=== PATIENT | female | born 1995 | race Two or more races ===

== ENCOUNTER 2020-11-25 13:58 | Emergency (ER) | payer OTHER ==
[~2020-11-25] VITALS: Ht 154.9 cm; Wt 68.0 kg
[~2020-11-25 13:58] MED LIST: ACET300T2 PO; INFL100I IV
[2020-11-25] MEDS ORDERED: cefTRIAXone W LIDOCAINE 1 GM IM IM ONE (17:45)
[2020-11-25 18:04] VITALS: BP 115/78
== END 2020-11-25 17:04 | disposition home or self-care (01) ==
LOC: ER 13:58
DX: M06.861 Other specified rheumatoid arthritis, right knee (principal); Z79.899 Other long term (current) drug therapy
CPT/HCPCS: 20610; 73700; 96372; 99284; J0696

== ENCOUNTER 2020-11-29 06:17 | Emergency (ER) | payer OTHER ==
[~2020-11-29] VITALS: Ht 154.9 cm; Wt 49.9 kg
[2020-11-29] MEDS ORDERED: cefTRIAXone W LIDOCAINE 1 GM IM IM ONE (08:30)
[2020-11-29] MEDS ORDERED: LIDOCAINE 1% HCL (LOCAL ANESTH.) INJ 20ML MDV ONE (10:08)
[2020-11-29 11:18] VITALS: BP 115/78
== END 2020-11-29 11:23 | disposition home or self-care (01) ==
LOC: ER 06:17
DX: M06.9 Rheumatoid arthritis, unspecified (principal); M25.461 Effusion, right knee; Z79.899 Other long term (current) drug therapy
CPT/HCPCS: 73700; 99284; J0696; J2001

== ENCOUNTER 2023-08-05 03:41 | Emergency (ER) | payer MEDICAID ==
[~2023-08-05] VITALS: Ht 154.9 cm; Wt 54.8 kg
[~2023-08-05 03:41] MED LIST changes: -ACET300T2 PO; +ACET300T51 PO
[2023-08-05 04:40] LABS: Urine Bacteria FEW /hpf (None Seen); Urine Blood Negative /uL (Negative); Urine Clarity Clear (Clear); Urine Color Yellow (Yellow); Urine Protein, UAD TRACE (Negative); Urine Urobilinogen Normal (Negative); Urine WBC 6 /hpf (0 - 5); Urine pH 6.5 (5.0-9.0)
[2023-08-05] MEDS: ONDANSETRON ODT 4 MG TAB PO ONE (06:30)
[2023-08-05] MEDS: KETOROLAC TROMETH 60MG/2ML VIAL IM ONE (06:30)
[2023-08-05 06:51] LABS: Eosinophils # (auto) 0 10 ^3/uL (0-0.8); Monocytes # (auto) 1.9 10 ^3/uL (0-1.3); Monocytes % (auto) 11.8 % (0.0-12.0)
[2023-08-05 06:54] LABS: Basophils # (auto) 0.2 10 ^3/uL (0-0.2); Basophils % (auto) 1.1 % (0.0-2.0); Hematocrit 35.7 % (36.0-46.0); Hemoglobin 11.4 g/dL (12.2-16.2); Lymphocytes # (auto) 1.6 10 ^3/uL (0.4-5.4); Lymphocytes % (auto) 9.8 % (10.0-50.0); Mean Corpuscular Hgb Conc. 31.9 g/dL (32.0-36.0); Mean Corpuscular Volume 75.3 fL (80.0-100.0); Neutrophils # (auto) 12.6 10 ^3/uL (1.6-8.6); Neutrophils % (auto) 77.3 % (37.0-80.0); Red Blood Cells 4.73 10^6/uL (4.0-5.20); Red Cell Distribution Width 16.5 % (11.8-14.3); White Blood Cell 16.3 10^3/uL (4.4-10.8)
[2023-08-05 07:13] LABS: Alanine Aminotransferase 14 U/L (7-40); Albumin 4.8 g/dL (3.2-4.8); Alkaline Phosphatase 81 U/L (46-116); Anion Gap 8 (5-15); Aspartate Aminotransferase 13 U/L (13-40); Bilirubin, Total 0.4 mg/dL (0.2-1.0); Blood Urea Nitrogen 7 mg/dL (9-23); Calcium 9.9 mg/dL (8.7-10.4); Carbon Dioxide 23 mmol/L (20-30); Chloride 104 mmol/L (98-107); Glucose 110 mg/dL (74-106); Potassium 3.9 mmol/L (3.5-5.1); Sodium 135 mmol/L (136-145); Total Protein 8.3 g/dL (5.7-8.2)
[2023-08-05 07:17] LABS: BUN/Creatinine Ratio 9.5 (10.0-20.0)
[2023-08-05] MEDS ORDERED: ZOFR4T PO (07:28)
[2023-08-05] MEDS ORDERED: DOXY1CAP57 PO (07:28)
[2023-08-05] MEDS ORDERED: NAP500T PO (07:28)
[2023-08-05] MEDS ORDERED: cefTRIAXone W LIDOCAINE 500 MG IM IM ONE (07:30)
[2023-08-05 07:54] VITALS: BP 114/73; TEMP 98.9
[2023-08-05 07:55] VITALS: PULSE 100; RESP 17; O2SAT 96
== END 2023-08-05 07:56 | disposition home or self-care (01) ==
LOC: ER 03:41
DX: R10.31 Right lower quadrant pain (principal); Z32.02 Encounter for pregnancy test, result negative
CPT/HCPCS: 36415; 74176; 80053; 81001; 81025; 83605; 85025; 96372; 99285; J0696; J1885; Q0162

== ENCOUNTER 2024-12-02 16:15 | Emergency (ER) | payer MEDICAID ==
[~2024-12-02] VITALS: Ht 154.9 cm; Wt 57.5 kg
[~2024-12-02 16:15] MED LIST changes: +DOXY1CAP57 PO; +NAP500T PO; +ZOFR4T PO
--- NOTE | 2024-12-02 19:29 | DVH ---
EXAM: US OB ULTRASOUND COMP LESS 14WKS HISTORY: pain and bleeding COMPARISON: None TECHNIQUE: Transabdominal and endovaginal real time eduardo scale, color, and doppler evaluation. Perman ent images are maintained in the patient record. FINDINGS: Uterus measures 9.4 x 5.3 x 6.2 cm. Ovary measures 3 x 1.7 x 1.8 cm. Left ovary measures 3.5 x 2.1 x 2.7 cm. Gestational sac measures 0.9 cm. No yolk sac or pole seen at this time. IMPRESSION: 1. Question gestational sac measuring 0.9 cm.
--- NOTE | 2024-12-02 19:38 | ED.PDOC ---
History of Present Illness HPI Comments 29-year-old female who comes in with chief complaint of bleeding since about 2:00 a.m. this afternoon. The patient states that she is approximately six weeks and started with some vaginal bleeding. She denies any abdominal pain. There has been no nausea, vomiting or diarrhea. The patient denies any fever or chills. She was brought to the emergency department's by her significant other. Chief Complaint: Vaginal Bleed Time Seen by MD: 17:01 Primary Care Provider: JOEK Reviewed Notes: Nurses Notes, Medications, Allergies (No allergies to medications) Allergies: Coded Allergies: NO KNOWN ALLERGIES (Unverified , 07/09/16) Home Meds Active Scripts Ondansetron Odt 4MG Tab (ZOFRAN PO) 4 Mg Tb, 4 MG PO Q8HR PRN, #14 TAB ODT TAB-DISSOLVE IN MOUTH, THEN SWALLOW Prov:JULIETA CLAYTON MD 08/05/23 Naproxen (NAPROSYN TABLET) 500 Mg Tb, 1 TAB PO BID PRN, #20 TAB 1 Refill Prov:JULIETA CLAYTON MD 08/05/23 Doxycycline Monohydrate (Doxycycline Monohydrate) 100 Mg Cap, 1 CAP PO BID, #20 CAP Prov:JULIETA CLAYTON MD 08/05/23 Reported Medications Infliximab (Remicade) 100 Mg Inj, 100 MG IV, INJ 07/09/16 Acetaminophen W/ Codeine (Acetaminophen/Codeine) 1 Tab Tab, 1 TAB PO PRN, #90 TAB 07/09/16 Information Source: Patient, Significant Other Mode of Arrival: Ambulatory Severity: Mild Timing: Hours Duration: Since onset Prehospital treatment: None Associated signs and symptoms Vaginal bleeding Past Medical History PAST MEDICAL HISTORY: Arthritis Surgical History: Denies all surgeries Surgical History (Other): 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 Family History Family History: Family hx of Cancer Social History Smoker: Non-Smoker Alcohol: Denies ETOH Use Drugs: Denies Drug Use Lives In: Home Constitutional: denies: chills, diaphoresis, fatigue, fever, malaise, sweats, weakness, others EENTM: denies: blurred vision, double vision, ear bleeding, ear discharge, ear drainage, ear pain, ear ringing, eye pain, eye redness, hearing loss, mouth pain, mouth swelling, nasal discharge, nose bleeding, nose congestion, nose pain, photophobia, tearing, throat pain, throat swelling, voice changes, others Respiratory: denies: cough, hemoptysis, orthopnea, SOB at rest, shortness of breath, SOB with excertion, stridor, wheezing, others Cardiovascular: denies: chest pain, dizzy spells, diaphoresis, Dyspnea on exertion, edema, irregular heart beat, left arm pain, lightheadedness, palpitations, PND, syncope, others Gastrointestinal: denies: abdomen distended, abdominal pain, blood streaked bowels, constipated, diarrhea, dysphagia, difficulty swallowing, hematemesis, melena, nausea, poor appetite, poor fluid intake, rectal bleeding, rectal pain, vomiting, others Genitourinary: reports: abnormal vagina bleeding; denies: burning, dyspareunia, dysuria, flank pain, frequency, hematuria, incontinence, pain, , vagina discharge, urgency, others Neurological: denies: dizziness, fainting, headache, left sided numbness, left sided weakness, numbness, paresthesia, pre-existing deficit, right sided numbness, right sided weakness, seizure, speech problems, tingling, tremors, weakness, others Musculoskeletal: denies: back pain, gout, joint pain, joint swelling, muscle pain, muscle stiffness, neck pain, others Integumetry: denies: bruises, change in color, change in hair/nails, dryness, laceration, lesions, lumps, rash, wounds, others Allergic/Immunocompromised: denies: Difficulty Healing, Frequent Infections, Hives, Itching, others Hematologic/Lymphatic: denies: anemia, blood clots, easy bleeding, easy bruising, swollen glands, others Endocrine: denies: excessive hunger, excessive sweating, excessive thirst, excessive urination, flushing, intolerance to cold, intolerance to heat, unexplained weight gain, unexplained weight loss, others Psychiatric: denies: anxiety, bipolar disorder, depression, hopeless, panic disorder, schizophrenia, sleepless, suicidal, others Physical Exam General Appearance: No Apparent Distress HEENT: Normal ENT Inspection, Pharynx Normal, TMs Normal Neck: Full Range of Motion, Non-Tender, Normal, Normal Inspection Respiratory: Chest Non-Tender, Lungs Clear, No Accessory Muscle Use, No Resp iratory Distress, Normal Breath Sounds Cardiovascular: No Edema, No JVD, No Murmur, No Gallop, Normal Peripheral Pulses, Regular Rate/Rhythm Breast Exam: Deferred Gastrointestinal: No Organomegaly, Non Tender, No Pulsatile Mass, Normal Bowel Sounds, Soft Genitalia: Deferred Pelvic: Deferred Rectal: Deferred Extremities: No calf tenderness, Normal capillary refill, Normal inspection, Normal range of motion, Non-tender, No pedal edema Musculoskeletal : Apperance: Normal Neurologic: Alert, rn cardiovascular II-XII nml as Tested, No Motor Deficits, Normal Affect, Normal Mood, No Sensory Deficits Cerebellar Function: Normal Reflexes: Normal Skin: Dry, Normal Color, Warm Lymphatic: No Adenopathy Was a procedure done? Was a procedure done?: No Differential Dx Considerations may include: Threatened , ectopic X-Ray, Labs, Meds, VS Vital Signs Date Time Temp Pulse Resp B/P (MAP) Pulse Ox O2 Delivery O2 Flow Rate FiO2 12/02/24 16:16 98.2 83 16 137/87 99 98.2 Lab Test 12/02/24 17:30 Range/Units Beta HCG, Quantitative 44056.6 H 1.5-4.2 mIU/[place] [address] Images Reviewed?: Images reviewed and evaluated by me Time of 1ST Reevaluation: 19:38 Reevaluation 1ST: Improved Patient Education/Counseling: Diagnosis, Treatment, Prognosis, Need For Follow Up Family Education/Counseling: No Family Present SEPSIS Sepsis Screen Date sepsis recognized/suspect: Dec 02, 2024 Time Sepsis recognized/suspect: 1617 Recent Procedure: No On Antibiotic Therapy: No Respiratory Rate >20: No Heart Rate >90: No Temp<36 C (96.8 F) or >38.3 C: No SBP <90 or MAP <65 mmHG: No New Acute Mental Status Change: No Is the patient on CPAP, BIPAP,: No Physician Orders Ob Ultrasound Comp Less 14wks (12/02/24 17:11) Urinalysis (12/02/24 17:11) Ob Trans Vaginal Us (12/02/24 ) Vital Signs Date Time Temp Pulse Resp B/P (MAP) Pulse Ox O2 Delivery O2 Flow Rate FiO2 12/02/24 16:16 98.2 83 16 137/87 99 98.2 Departure 1 Departure Time of Disposition: 20:34 Impression: Primary Impression: Threatened Disposition: 01 HOME / SELF CARE / HOMELESS Condition: Fair Discharged With: Self Critical Care Note Critical Care Time?: No Stability Stability form required: No Heart Score Heart Score: Heart Score Response (Comments) Value History N/A 0 EKG N/A 0 Age N/A 0 Risk Factors N/A 0 Troponin N/A 0 Total 0 SILVINA NEFF MD Dec 02, 2024 19:38
[2024-12-02 20:40] VITALS: BP 122/68; PULSE 86; RESP 18; TEMP 98.5; O2SAT 99
== END 2024-12-02 20:56 | disposition home or self-care (01) ==
LOC: ER 16:15
DX: O20.0 Threatened abortion (principal); M19.90 Unspecified osteoarthritis, unspecified site; Z3A.01 Less than 8 weeks gestation of pregnancy; Z98.890 Other specified postprocedural states
CPT/HCPCS: 36415; 76801; 76817; 84702